=== PATIENT | female | born 1965 | race Asian ===

== ENCOUNTER 2017-08-17 11:27 | Emergency (ER) | payer MEDICAID, OTHER ==
[~2017-08-17] VITALS: Ht 165.1 cm; Wt 83.9 kg
[~2017-08-17 11:27] MED LIST: ASPIRIN81 MG ORAL; CATAPRES0.1 MG ORAL; LISINOPRIL30 MG ORAL; VASOTEC10 MG ORAL
[2017-08-17 11:43] VITALS: BP 121/78
[2017-08-17] MEDS ORDERED: ROBAXIN-750750 MG PO (12:03)
[2017-08-17] MEDS ORDERED: LIDOCAINE700 M1 TP (12:03)
[2017-08-17 12:15] VITALS: BP 121/78
--- NOTE | 2017-08-17 12:36 | Emergency Room Report ---
History of Present Illness General Chief Complaint: Back Pain-No Injury Source: Patient Present Illness HPI 52-year-old female p/w back pain for 2 months. Patient states that she does a lot of vigorous work in her jaw. Pain is localized to right lower back, sharp in nature, radiating down leg. Movement worsens pain. There are no alleviating factors. Patient took Tylenol which does help the pain Patient has experienced this similar pain in the past. Denies trauma. Denies lower extremity weakness/numbness, no bowel/bladder retention or incontinence, saddle anesthesia. Denies fever, chills, abdominal pain, n/v, dysuria/hematuria. No history of IVDA Allergies: Coded Allergies: CEPHALEXIN (Unverified Allergy, Severe, swelling, 08/19/14) possible drug for allergic rxn. Patient arrived on unit for allergic rxn on 08/19/14. Cephalexin a possible cause since pt took that today PENICILLINS (Verified Allergy, Unknown, 10/10/15) Patient History Past Medical History: see triage record Past Surgical History: none Pertinent Family History: none Last Menstrual Period: 08/06/2017 Reviewed Nursing Documentation: PMH: Agreed, PSxH: Agreed Nursing Documentation-PMH Past Medical History: No History, Except For Hx Cardiac Problems: No Hx Hypertension: Yes Hx Pacemaker: No Hx Asthma: No Hx COPD: No Hx Diabetes: No Hx Cancer: No Hx Gastrointestinal Problems: No History Of Psychiatric Problem: No Hx Neurological Problems: No Hx Cerebrovascular Accident: No Hx Seizures: No Review of Systems All Other Systems: negative except mentioned in HPI Physical Exam Vital Signs Date Time Temp Pulse Resp B/P (MAP) Pulse Ox O2 Delivery O2 Flow Rate FiO2 08/17/17 11:33 98.0 72 16 118/76 98 Room Air 98.1 Sp02 EP Interpretation: reviewed, normal General Appearance: normal inspection, well appearing, no apparent distress, alert, GCS 15, non-toxic Head: normocephalic, atraumatic Eyes: bilateral eye normal inspection, bilateral eye PERRL, bilateral eye EOMI ENT: normal ENT inspection, normal pharynx, normal voice, moist mucus membranes Neck: normal inspection, full range of motion, supple Respiratory: normal inspection, lungs clear, normal breath sounds, no respiratory distress, no retraction, no wheezing, speaking full sentences, chest symmetrical Cardiovascular #1: normal inspection, regular rate, rhythm, no edema, normal capillary refill Cardiovascular #2: 2+ radial (R), 2+ radial (L) Gastrointestinal: normal inspection, non tender, soft, non-distended, no guarding Musculoskeletal: other - Right-sided paraspinal lower lumbar tenderness, no midline tenderness, full range of motion all extremities Neurologic: normal inspection, alert, oriented x3, responsive, motor strength/ tone normal, sensory intact, normal gait, speech normal Psychiatric: normal inspection, judgement/insight normal, memory normal Skin: normal inspection, normal color, no rash, warm/dry, well hydrated, normal turgor Medical Decision Making Diagnostic Impression: Primary Impression: Chronic back pain ER Course 52-year-old female p/w back pain 2 weeks DDX: Likely musculoskeletal back pain vs. muscular strain vs. sciatica Lumbar fracture is unlikely given patients age, no midline tenderness, no history of trauma, and that patient is ambulatory. Therefore, at this time no imaging is indicated Serious diagnoses such as cord compression, epidural abscess is unlikely in this patient given the clinical scenario and abscess of neurological symptoms or findings. Patient appears nontoxic. Plan: None ER course: Patient has remained nontoxic appearing and ambulatory in the ED. Pain improved w/ medications Disposition: Patient will be discharged to home with prescription of and robaxin. Lidocaine patch Patient cautioned of the effects of robaxin including possible impairment of physical or mental abilities. Patient was instructed to refrain from operating machinery or driving. Patient is also cautioned on the GI effects of motrin and to take sparingly. Patient verbalized understanding. Strict precautions discussed with patient on when to emergently return to the ED which includes severe/worsening back pain, leg weakness/numbness, urinary retention/incontinence, fever or chills, which may indicate severe illness. Patient is to follow up with their PMD within 5 days. Patient agrees with plan. Please note that this Emergency Department Report was dictated using [employer] tester technology software, occasionally this can lead to erroneous entry secondary to interpretation by the dictation equipment. Last Vital Signs Date Time Temp Pulse Resp B/P (MAP) Pulse Ox O2 Delivery O2 Flow Rate FiO2 08/17/17 12:15 98.1 84 18 121/78 97 Room Air 98.1 Disposition: HOME, SELF-CARE Condition: Improved Scripts Methocarbamol* (ROBAXIN-750*) 750 Mg Tablet 750 MG PO QID, #28 TAB 0 Refills Prov: Phill Chau M.D. 08/17/17 Lidocaine (Lidocaine) 1 Each Adh..patch 700 MG TP EVERY 12 HOURS, #30 PATCH Prov: Phill Chau M.D. 08/17/17 Referrals: NOT CHOSEN IPA/,REFERRING (PCP) Patient Instructions: Back Pain, Adult Phill Chau M.D. Aug 17, 2017 12:36
== END 2017-08-17 12:22 | disposition home or self-care (01) ==
LOC: EMR 12:13
DX: M54.5 Low back pain (principal); I10 Essential (primary) hypertension; Z88.0 Allergy status to penicillin
CPT/HCPCS: 99283

== ENCOUNTER 2017-09-30 16:22 | Emergency (ER) | payer OTHER ==
[~2017-09-30] VITALS: Ht 165.1 cm; Wt 81.6 kg
[~2017-09-30 16:22] MED LIST changes: +LIDOCAINE700 M1 TP; +ROBAXIN-750750 MG PO
--- NOTE | 2017-09-30 16:38 | Emergency Room Report ---
History of Present Illness General Chief Complaint: Upper Respiratory Illness Present Illness HPI 52-year-old female patient presents to ER complaining of cough 5 days. Reports cough is dry, denies blood with cough. Denies fever, reports subjective chills. Reports cough worse at night. Denies history of asthma, denies history of PE, NH, cardiovascular disease. Reports history of sick contacts with similar symptoms at home. Denies chest pain, shortness of breath, abdominal pain, nausea, vomiting, headache reports sore throat during this time, reports sore throat began after cough symptoms. Reports taking Robitussin at home for relief of symptoms, reports mild relief of symptoms. Denies history of cancer, denies recent travel , denies immobilization or recent surgery, denies taking hormone pills. Denies neck or calf pain. Patient requesting antibiotics. Allergies: Coded Allergies: CEPHALEXIN (Unverified Allergy, Severe, swelling, 08/19/14) possible drug for allergic rxn. Patient arrived on unit for allergic rxn on 08/19/14. Cephalexin a possible cause since pt took that today PENICILLINS (Verified Allergy, Unknown, 10/10/15) Patient History Past Medical History: see triage record Reviewed Nursing Documentation: PMH: Agreed; PSxH: Agreed Nursing Documentation-PMH Hx Cardiac Problems: No Hx Hypertension: Yes Hx Pacemaker: No Hx Asthma: No Hx COPD: No Hx Diabetes: No Hx Cancer: No Hx Gastrointestinal Problems: No Hx Neurological Problems: No Hx Cerebrovascular Accident: No Hx Seizures: No Review of Systems All Other Systems: negative except mentioned in HPI Physical Exam Vital Signs Date Time Temp Pulse Resp B/P (MAP) Pulse Ox O2 Delivery O2 Flow Rate FiO2 09/30/17 16:30 98.1 79 16 114/66 96 Room Air 98.1 Sp02 EP Interpretation: reviewed, normal General Appearance: well appearing, no apparent distress, alert, GCS 15, non- toxic Head: normocephalic, atraumatic Eyes: bilateral eye normal inspection, bilateral eye PERRL ENT: hearing grossly normal, normal pharynx, no angioedema, normal voice, TMs + canals normal, uvula midline, moist mucus membranes, tonsillar swelling, pharyngeal erythema Neck: full range of motion Respiratory: lungs clear, normal breath sounds, no rhonchi, no respiratory distress, no accessory muscle use, no wheezing, speaking full sentences, other - no stridor Cardiovascular #1: regular rate, rhythm, no edema Musculoskeletal: back normal, digits/nails normal, gait/station normal, normal range of motion, non-tender, no calf tenderness, Rehan's Sign negative Neurologic: alert, oriented x3, responsive, motor strength/tone normal, sensory intact Psychiatric: mood/affect normal Skin: no rash Lymphatic: no adenopathy Medical Decision Making PA Attestation Dr. Mcgraw is my supervising Physician whom patient management has been discussed with. Diagnostic Impression: Primary Impression: Upper respiratory infection ER Course Pt presents to ED c/o cough 5 days. DDX considered but are not limited to influenza, viral URI, pneumonia, strep throat, rhinitis, sinusitis, otitis media. Will order chest x-ray to rule out pneumonia. Low suspicion for PE per Well's criteria. VITAL SIGNS are WNL, patient is afebrile. Ordered CXR and viscous lidocaine for sore throat. CURES report negative. ER COURSE: Physical exam benign, no tonsillar exudates, no pharyngeal erythema and uvular deviation. Lungs clear to auscultation, no wheezes, rhonci or rales. CXR shows no acute disease. Reviewed with Dr. Mcgraw, agrees with reading. Likely viral etiology of symptoms. does not require antibiotics for treatment of likely viral cause of symptoms. Sore throat likely secondary to cough symptoms. Symptomatic treatment. take Cough medication at night to help with sleep, May cause drowsiness, do not a prior drinking driving or operating of machinery. Followup with PCP for further treatment and/or referral as needed. DISCHARGE: -Rx given for Tylenol/Acetaminophen -Rx given for Promethazine with codeine syrup for cough sx. At this time pt is stable for d/c to home. Patient is resting comfortably, in no acute distress, nontoxic appearing. Patient to take medications as instructed Will provide with patient care instructions and any necessary prescriptions. Care plan and follow-up instructions provided. Patient instructed to follow-up with primary care provider in 3 - 5 days. Patient questions asked and answered. Patient reports understanding and agreement to treatment plan. ER precautions given. Patient instructed to return to ER immediately for any new or worsening of symptoms including but not limited to increasing SOB, persistent fever, intractable vomiting, calf pain. Chest X-Ray Diagnostic Results Chest X-Ray Diagnostic Results : Chest X-Ray Ordered: Yes # of Views/Limited/Complete: 1 View Indication: Chest Pain EP Interpretation: Yes PA Xray: Interpretation reviewed, by supervising MD, and agrees with findings. Interpretation: no consolidation, no effusion, no pneumothorax, no acute cardiopulmonary disease Impression: No acute disease GUMARO Scribmatilde Text Davian Pulido PA-C Last Vital Signs Date Time Temp Pulse Resp B/P (MAP) Pulse Ox O2 Delivery O2 Flow Rate FiO2 09/30/17 16:30 98.1 79 16 114/66 96 Room Air 98.1 Disposition: HOME, SELF-CARE Condition: Stable Scripts Acetaminophen* (TYLENOL EXTRA STRENGTH*) 500 Mg Tablet 500 MG ORAL Q8H PRN for Prn Headache/Temp > 101, #30 TAB 0 Refills Prov: Ki Pulido 09/30/17 Codeine/Promethazine Hcl* (PROMETHAZINE-CODEINE SYRUP*) 118 Ml Syrup 5 ML ORAL Q6H PRN for For Cough, #118 ML 0 Refills Prov: Ki Pulido 09/30/17 Patient Instructions: Upper Respiratory Infection, Adult Additional Instructions: Followup with primary care provider in 3 -5 days. Take medications as directed. Patient questions asked and answered. ER precautions given, patient instructed to return to ER immediately for any new or worsening of symptoms. Ki Pulido Sep 30, 2017 16:38
[2017-09-30] MEDS ORDERED: Lidocaine 2% Visc 15ml soln ORAL ONE (16:45)
[2017-09-30 16:51] VITALS: BP 114/66
[2017-09-30] MEDS ORDERED: PROMETHAZINE-C118 M1 ORAL (17:18)
[2017-09-30] MEDS ORDERED: TYLENOL EXTRA500 MG ORAL (17:18)
[2017-09-30 17:33] VITALS: BP 114/66
--- NOTE | 2017-10-01 09:27 | Diagnostic Imaging Report ---
Indication: Cough Technique: XRAY Chest 1v Comparison: 08/19/2014 Findings: Cardiomediastinal silhouette is stable. There is no consolidation or pleural effusion. Degenerative changes of the spine are seen. Impression: No acute cardiopulmonary disease.
== END 2017-09-30 17:30 | disposition home or self-care (01) ==
LOC: EMR 17:00
DX: J06.9 Acute upper respiratory infection, unspecified (principal); I10 Essential (primary) hypertension; Z88.0 Allergy status to penicillin
CPT/HCPCS: 71045; 99284

== ENCOUNTER 2017-10-28 15:36 | Emergency (ER) | payer OTHER ==
[~2017-10-28] VITALS: Ht 165.1 cm; Wt 83.9 kg
[~2017-10-28 15:36] MED LIST changes: +PROMETHAZINE-C118 M1 ORAL; +TYLENOL EXTRA500 MG ORAL
[2017-10-28 15:56] VITALS: BP 116/72
--- NOTE | 2017-10-28 16:08 | Emergency Room Report ---
History of Present Illness General Chief Complaint: Female Urogenital Problems Source: Patient Present Illness HPI 52-year-old female patient presents the ER complaining of dysuria and burning with urination for the past 5 days. Patient reports small amount of blood in urine yesterday evening. Reports hx of hematuria intermittently. Patient reports history of UTIs. Patient denies fever, nausea, vomiting, back pain, abdominal pain. Denies vaginal discharge. Patient reports history of kidney disease secondary to kidney stones, states right kidney is 15% functioning and is waiting to be scheduled to have surgery to have kidney removed. Reports hx of kidney stones, denies flank or back pain at this time. Reports last menstrual period was last month on the , states did not have menstrual period this month. Reports no recent sexual activity for the past 18 years. Denies or STI. Allergies: Coded Allergies: CEPHALEXIN (Unverified Allergy, Severe, swelling, 08/19/14) possible drug for allergic rxn. Patient arrived on unit for allergic rxn on 08/19/14. Cephalexin a possible cause since pt took that today PENICILLINS (Verified Allergy, Unknown, 10/10/15) Patient History Past Medical History: see triage record Last Menstrual Period: September Now: No Reviewed Nursing Documentation: PMH: Agreed; PSxH: Agreed Nursing Documentation-PMH Past Medical History: No History, Except For Hx Cardiac Problems: No Hx Hypertension: Yes Hx Pacemaker: No Hx Asthma: No Hx COPD: No Hx Diabetes: No Hx Cancer: No Hx Gastrointestinal Problems: No Hx Neurological Problems: No Hx Cerebrovascular Accident: No Hx Seizures: No Review of Systems All Other Systems: negative except mentioned in HPI Physical Exam Vital Signs Date Time Temp Pulse Resp B/P (MAP) Pulse Ox O2 Delivery O2 Flow Rate FiO2 10/28/17 15:48 97.8 64 18 116/72 97 Room Air 97.9 Sp02 EP Interpretation: reviewed, normal General Appearance: well appearing, no apparent distress, alert, GCS 15, non- toxic Head: normocephalic, atraumatic ENT: hearing grossly normal, normal pharynx, no angioedema, normal voice, uvula midline, moist mucus membranes Neck: full range of motion Respiratory: lungs clear, normal breath sounds, no rhonchi, no respiratory distress, no accessory muscle use, no wheezing, speaking full sentences Cardiovascular #1: regular rate, rhythm, no edema Gastrointestinal: non tender, soft, no mass, non-distended, no guarding, no rebound Genitourinary: no CVA tenderness Musculoskeletal: back normal, digits/nails normal, gait/station normal, normal range of motion, non-tender Neurologic: alert, oriented x3, responsive, motor strength/tone normal, sensory intact Psychiatric: mood/affect normal Skin: no rash Medical Decision Making PA Attestation Dr. Parker is my supervising Physician whom patient management has been discussed with. Diagnostic Impression: Primary Impression: Urinary tract infection Additional Impression: Hx of kidney disease ER Course Pt presents to ED c/o urinary symptoms. DDX considered but are not limited to cystitis, pyelonephritis, STI, vaginitis, . VITAL SIGNS are WNL, patient is afebrile. Ordered UA. ER COURSE PE benign, no signs of anemia, patient denies lightheadedness, dizziness, do not believe patient requires labs at this time. UA results show positive for nitrites, +3 leukocyte esterase, indicate UTI, will treat with abx. RBC's likely due to kidney disease. Due not believe patient requires further labs and imaging at this time due to patient hx, no back pain symptoms, and hx of labs and imaging. F/u with PCP. Patient agrees with treatment and plan, does not believe requires labs at this time. If concern for STI, followup with STI clinic for testing and treatment. Denies STI concern. Do not believe patient requires labs at this time, follow-up with primary care provider, discuss further referral and treatment at that time. Patient is resting comfortably in chair, nontoxic appearing, in no acute distress. Patient states they feel better and is ready to go home. DISCHARGE -Rx provided for Macrobid Patient is stable for discharge. Patient resting comfortably, in no acute distress, nontoxic appearing, talking without difficulty, smiling. Will provide with patient care instructions and any necessary prescriptions. Patient understands and agrees to treatment plan. Patient encouraged to drink plenty of fluids. Patient to take medication as instructed. Care plan and follow-up instructions provided. Patient questions asked and answered. Reports understanding and agreement to treatment plan. Patient instructed to follow-up with primary care provider in 3 - 5 days. ER precautions given. Patient instructed to return to ER immediately for any new or worsening of symptoms. Including but not limited to fever, abdominal pain , intractable vomiting. - Please note that this Emergency Department Report was dictated using [employer] assistant technology software, occasionally this can lead to erroneous entry secondary to interpretation by the dictation equipment. Labs Test 10/28/17 15:55 Urine Color Pale yellow Urine Appearance Clear Urine pH 6.5 (4.5-8.0) Urine Specific [place] 1.010 (1.005-1.035) Urine Protein 3+ (NEGATIVE) Urine Glucose (UA) Negative (NEGATIVE) Urine Ketones Negative (NEGATIVE) Urine Occult Blood 5+ (NEGATIVE) Urine Nitrite Positive (NEGATIVE) Urine Bilirubin Negative (NEGATIVE) Urine Urobilinogen Normal MG/DL (0.0-1.0) Urine Leukocyte Esterase 3+ (NEGATIVE) Urine RBC 10-15 /HPF (0 - 2) Urine WBC 5-10 /HPF (0 - 2) Urine Squamous Epithelial Cells Few /LPF (NONE/OCC) Urine Bacteria Moderate /HPF (NONE) Last Vital Signs Date Time Temp Pulse Resp B/P (MAP) Pulse Ox O2 Delivery O2 Flow Rate FiO2 10/28/17 15:56 97.9 70 18 116/72 97 Room Air 97.9 Disposition: HOME, SELF-CARE Condition: Stable Scripts Nitrofurantoin Monohyd/M-Cryst* (MACROBID 100 MG*) 100 Mg Capsule 100 MG ORAL EVERY 12 HOURS, #14 CAP Prov: Ki Pulido 10/28/17 Patient Instructions: Urinary Tract Infection Additional Instructions: Followup with primary care provider and followup with and/or OBGYN. Contact PCP to discuss surgery and need for further labs. Drink plenty of fluids. Take medications as directed. Patient questions asked and answered. ER precautions given, patient instructed to return to ER immediately for any new or worsening of symptoms chest pain, SOB, intractable vomiting, abdominal pain. Ki Pulido October 28, 2017 16:08
[2017-10-28 16:26] LABS: APPEARANCE,URINE CLEAR; BILIRUBIN, URINE NEGATIVE (NEGATIVE); COLOR,URINE PALE YELLOW; GLUCOSE, URINE (UA) NEGATIVE (NEGATIVE); KETONES,URINE NEGATIVE (NEGATIVE); LEUKOCYTE ESTERASE ,URINE 3+ (NEGATIVE); NITRITE,URINE POSITIVE (NEGATIVE); PH,URINE 6.5 (4.5-8.0); PROTEIN,URINE 3+ (NEGATIVE); UROBILINOGEN,URINE NORMAL MG/DL (0.0-1.0)
[2017-10-28] MEDS ORDERED: NITROFURANTOIN100 M2 ORAL (16:32)
[2017-10-28 16:45] VITALS: BP 116/72
== END 2017-10-28 16:47 | disposition home or self-care (01) ==
LOC: EMR 16:12
DX: N39.0 Urinary tract infection, site not specified (principal); I10 Essential (primary) hypertension; Z88.0 Allergy status to penicillin; Z88.1 Allergy status to other antibiotic agents
CPT/HCPCS: 81003; 87086; 87181; 99283

== ENCOUNTER 2018-04-22 19:03 | Emergency (ER) | payer OTHER ==
[~2018-04-22] VITALS: Ht 165.1 cm; Wt 83.9 kg
[~2018-04-22 19:03] MED LIST changes: +NITROFURANTOIN100 M2 ORAL
[2018-04-22 19:16] VITALS: BP 119/64
[2018-04-22] MEDS ORDERED: AMLODIPINE BESY10 MG ORAL (19:31)
[2018-04-22] MEDS ORDERED: TRIAMTERENE-HC1 EAC7 ORAL (19:31)
[2018-04-22] MEDS ORDERED: MONUROL3 GM ORAL (19:31)
[2018-04-22] MEDS ORDERED: COLACE100 MG ORAL (19:31)
[2018-04-22] MEDS ORDERED: SERTRALINE HCL50 MG ORAL (19:31)
[2018-04-22] MEDS ORDERED: TAMSULOSIN HCL0.4 MG ORAL (19:31)
[2018-04-22] MEDS ORDERED: Acetaminophen 500mg (ES) tab ORAL ONE (19:45)
[2018-04-22 20:26] LABS: APPEARANCE,URINE TURBID; BILIRUBIN, URINE NEGATIVE (NEGATIVE); COLOR,URINE AMBER; GLUCOSE, URINE (UA) NEGATIVE (NEGATIVE); KETONES,URINE NEGATIVE (NEGATIVE); LEUKOCYTE ESTERASE ,URINE 3+ (NEGATIVE); NITRITE,URINE POSITIVE (NEGATIVE); PH,URINE 6 (4.5-8.0); PROTEIN,URINE 3+ (NEGATIVE); UROBILINOGEN,URINE NORMAL MG/DL (0.0-1.0)
[2018-04-22 20:32] LABS: HEMATOCRIT 33.8 % (37.0-47.0); HEMOGLOBIN 11.5 G/DL (12.0-16.0); MEAN CORPUSCULAR VOLUME 88 FL (80-99); PLATELET COUNT 201 K/UL (150-450); RED BLOOD COUNT 3.84 M/UL (4.20-5.40); RED CELL DISTRIBUTION WIDTH 12.5 % (11.6-14.8)
[2018-04-22 20:34] LABS: ANION GAP 10 mmol/L (5-15); BLOOD UREA NITROGEN 14 mg/dL (7-18); CALCIUM 9.4 MG/DL (8.5-10.1); CARBON DIOXIDE 25 MMOL/L (21-32); CHLORIDE 101 MMOL/L (98-107); CREATININE 1.1 MG/DL (0.55-1.30); POTASSIUM 3.2 MMOL/L (3.5-5.1); SODIUM 135 MMOL/L (136-145)
[2018-04-22 20:38] LABS: ALANINE AMINOTRANSFERASE 24 U/L (12-78); ALBUMIN 3.2 G/DL (3.4-5.0); ALBUMIN/GLOBULIN RATIO 0.6 (1.0-2.7); ALKALINE PHOSPHATASE 74 U/L (46-116); ASPARTATE AMINO TRANSFERASE 16 U/L (15-37); BILIRUBIN,TOTAL 0.4 MG/DL (0.2-1.0); WHITE BLOOD COUNT 24.4 K/UL (4.8-10.8)
[2018-04-22 20:48] VITALS: BP 107/63
--- NOTE | 2018-04-22 21:04 | Emergency Room Report ---
History of Present Illness General Chief Complaint: Fever Source: Patient Present Illness HPI Patient has a history of kidney stones. Patient states that she had left lithotripsy performed a couple days ago. She had a stent placed. She states that she is on Bactrim currently unfortunately she develop fever weakness and chills and came here further evaluation. She denies any chest pain or shortness of breath. No other complaints were noted. She is concerned that maybe she has infected stone or stent or UTI. Patient's surgery was performed at [facility]. Unfortunately she was unable to find a physician that [facility] or summaries answer her phone therefore she came here further evaluation. No other complete were noted. Symptoms noted to be severe.No other modifying factors. No other associated signs and symptoms. No other complaints were noted. Allergies: Coded Allergies: CEPHALEXIN (Unverified Allergy, Severe, swelling, 08/19/14) possible drug for allergic rxn. Patient arrived on unit for allergic rxn on 08/19/14. Cephalexin a possible cause since pt took that today PENICILLINS (Verified Allergy, Unknown, 10/10/15) Patient History Past Medical History: HTN Past Surgical History: other - Lithotripsy, left ureteral stent Pertinent Family History: none Social History: Denies: smoking, alcohol use, drug use Reviewed Nursing Documentation: PMH: Agreed; PSxH: Agreed Nursing Documentation-PMH Past Medical History: No History, Except For Hx Cardiac Problems: No Hx Hypertension: Yes Hx Pacemaker: No Hx Asthma: No Hx COPD: No Hx Diabetes: No Hx Cancer: No Hx Gastrointestinal Problems: No Hx Dialysis: No - Kidney stone Hx Neurological Problems: No Hx Cerebrovascular Accident: No Hx Seizures: No Review of Systems All Other Systems: negative except mentioned in HPI Physical Exam Vital Signs Date Time Temp Pulse Resp B/P (MAP) Pulse Ox O2 Delivery O2 Flow Rate FiO2 04/22/18 19:16 99.1 114 18 119/64 98 Room Air Sp02 EP Interpretation: reviewed, normal General Appearance: normal inspection, well appearing, no apparent distress, alert Head: atraumatic Eyes: bilateral eye normal inspection ENT: normal ENT inspection, hearing grossly normal, normal voice Neck: normal inspection, full range of motion, supple, no bony tend Respiratory: normal inspection, lungs clear, normal breath sounds, no respiratory distress, no retraction, no wheezing Cardiovascular #1: regular rate, rhythm, no edema Gastrointestinal: normal inspection, normal bowel sounds, non tender, soft, no guarding, no hernia Genitourinary: no CVA tenderness Musculoskeletal: normal inspection, back normal, normal range of motion Neurologic: normal inspection, alert, responsive, speech normal Psychiatric: normal inspection, judgement/insight normal, mood/affect normal Skin: normal inspection, normal color, no rash Medical Decision Making Diagnostic Impression: Primary Impression: UTI (urinary tract infection) Additional Impressions: Infection associated with indwelling ureteral stent Infection, kidney ER Course Patient presents emergency department today with fever. Patient had a recent lithotripsy and ureteral stent. Differential considerations include abscess, infected stone, infected ureteral stent, pyelonephritis, UTI, viral syndrome just to name a few.Given the severity of the patient's presentation I felt this is a highly complex patient. This patient required extensive workup. Given patient's presentation I felt the patient likely had a UTI or infected stone. Patient's white count was elevated. Patient was given IV fluids Levaquin and aztreonam. Patient will be transferred to [facility] further treatment. Case was discussed with transferring physician Dr. García who accept the case. Labs Test 04/22/18 20:15 White Blood Count 24.4 K/UL (4.8-10.8) Red Blood Count 3.84 M/UL (4.20-5.40) Hemoglobin 11.5 G/DL (12.0-16.0) Hematocrit 33.8 % (37.0-47.0) Mean Corpuscular Volume 88 FL (80-99) Mean Corpuscular Hemoglobin 29.9 PG (27.0-31.0) Mean Corpuscular Hemoglobin Concent 34.0 G/DL (32.0-36.0) Red Cell Distribution Width 12.5 % (11.6-14.8) Platelet Count 201 K/UL (150-450) Mean Platelet Volume 5.5 FL (6.5-10.1) Neutrophils (%) (Auto) % (45.0-75.0) Lymphocytes (%) (Auto) % (20.0-45.0) Monocytes (%) (Auto) % (1.0-10.0) Eosinophils (%) (Auto) % (0.0-3.0) Basophils (%) (Auto) % (0.0-2.0) Urine Color Laura Urine Appearance Turbid Urine pH 6 (4.5-8.0) Urine Specific [place] 1.030 (1.005-1.035) Urine Protein 3+ (NEGATIVE) Urine Glucose (UA) Negative (NEGATIVE) Urine Ketones Negative (NEGATIVE) Urine Blood 5+ (NEGATIVE) Urine Nitrite Positive (NEGATIVE) Urine Bilirubin Negative (NEGATIVE) Urine Ictotest Negative (NEGATIVE) Urine Urobilinogen Normal MG/DL (0.0-1.0) Urine Leukocyte Esterase 3+ (NEGATIVE) Urine RBC Tntc /HPF (0 - 2) Urine WBC 15-20 /HPF (0 - 2) Urine Squamous Epithelial Cells Many /LPF (NONE/OCC) Urine Bacteria Many /HPF (NONE) Sodium Level 135 MMOL/L (136-145) Potassium Level 3.2 MMOL/L (3.5-5.1) Chloride Level 101 MMOL/L (98-107) Carbon Dioxide Level 25 MMOL/L (21-32) Anion Gap 10 mmol/L (5-15) Blood Urea Nitrogen 14 mg/dL (7-18) Creatinine 1.1 MG/DL (0.55-1.30) Estimat Glomerular Filtration Rate 51.9 mL/min (>60) Glucose Level 91 MG/DL (74-106) Calcium Level 9.4 MG/DL (8.5-10.1) Total Bilirubin 0.4 MG/DL (0.2-1.0) Aspartate Amino Transf (AST/SGOT) 16 U/L (15-37) Alanine Aminotransferase (ALT/SGPT) 24 U/L (12-78) Alkaline Phosphatase 74 U/L (46-116) Total Protein 8.3 G/DL (6.4-8.2) Albumin 3.2 G/DL (3.4-5.0) Globulin 5.1 g/dL Albumin/Globulin Ratio 0.6 (1.0-2.7) EKG Diagnostic Results Rate: normal Rhythm: NSR ST Segments: no acute changes Rhythm Strip Diag. Results EP Interpretation: yes Rate: 94 Rhythm: NSR, no PVC's, no ectopy Chest X-Ray Diagnostic Results Chest X-Ray Diagnostic Results : Chest X-Ray Ordered: Yes # of Views/Limited/Complete: 1 View Indication: Other - Fever EP Interpretation: Yes Interpretation: no consolidation, no effusion, no pneumothorax, no acute cardiopulmonary disease Impression: No acute disease Electronically Signed by: Electronically signed by Ilan Mcgraw MD Last Vital Signs Date Time Temp Pulse Resp B/P (MAP) Pulse Ox O2 Delivery O2 Flow Rate FiO2 04/22/18 20:48 98.6 88 13 107/63 97 Room Air Status: improved Disposition: XFER [facility] Condition: Serious Referrals: NON PHYSICIAN (PCP) Ilan Mcgraw MD Apr 22, 2018 21:04
[2018-04-22] MEDS ORDERED: Aztreonam Inj 2 GM in NS 110 ML IVPB ONE (21:15)
[2018-04-22 21:43] VITALS: BP 106/65
[2018-04-22 21:53] VITALS: BP 106/65
--- NOTE | 2018-04-23 09:58 | Diagnostic Imaging Report ---
Indication: Abdominal pain Technique: Supine view of the abdomen Comparison: none Findings: Multiple large staghorn calculi are seen in the expected region of the right renal collecting system. There is a left nephroureteral stent in the expected position. There are 2 small calculi in expected region of the left lower pole collecting system. Bowel gas pattern is unremarkable. 2 circular metallic objects project over the lower abdomen bilaterally, presumably external to the patient Impression: Multiple large right renal staghorn calculi Evidence of left nephrolithiasis and prior nephroureteral stenting as described No acute process
--- NOTE | 2018-04-23 17:17 | Diagnostic Imaging Report ---
Indication: Cough Technique: One view of the chest Comparison: 09/30/2017 Findings: Lungs and pleural spaces are clear. Heart size is normal. No significant interim change Impression: No acute process
--- NOTE | 2018-04-23 18:23 | Cardiology Report ---
APPROVED REPORT EKG Measurement Heart [id number] Normal sinus rhythm Nonspecific T wave abnormality Abnormal ECG
== END 2018-04-22 22:00 | disposition short-term general hospital (02) ==
LOC: EMR 19:30
DX: N39.0 Urinary tract infection, site not specified (principal); T83.518A Infection and inflammatory reaction due to other urinary catheter, initial encounter; Y84.6 Urinary catheterization as the cause of abnormal reaction of the patient, or of later complication, without mention of misadventure at the time of the procedure; Y92.9 Unspecified place or not applicable; I10 Essential (primary) hypertension; Z88.0 Allergy status to penicillin
CPT/HCPCS: 36415; 71045; 74018; 80053; 81003; 85007; 85025; 87040; 87086; 87181; 93005; 96361; 96368; 96375; 99284; J1956; J8499